=== PATIENT | female | born 1980 | race Caucasian/White ===

== ENCOUNTER 2017-03-14 11:33 | Day surgery (SDC) | payer BC ==
[2017-03-14] MEDS ORDERED: Lactated Ringers 1,000 ML IV SCH (12:00)
[2017-03-14] MEDS ORDERED: Midazolam 1 MG/ML 2 ML SDV ONE (13:01)
[2017-03-14] MEDS ORDERED: fentaNYL 100 MCG/2 ML SDV ONE ×2 (13:01→14:32)
[2017-03-14] MEDS ORDERED: Propofol 200 MG/20 ML SDV ONE ×2 (13:01→14:30)
[2017-03-14] MEDS ORDERED: Lidocaine 1% 50 ML MDV ONE (13:36)
[2017-03-14] MEDS ORDERED: Silver Nitrate Applicator Each TOP ONE (14:30)
--- NOTE | 2017-03-14 15:06 | PCM.PRNOTE ---
- Free Text/Narrative Note: Description:On bimanual exam, the patient has approximately 6-8 week anteverted , mobile uterus with the cervix that is dilated to approximately 1 cm PREOPERATIVE DIAGNOSIS: Missed . POSTOPERATIVE DIAGNOSIS: Missed . PROCEDURE PERFORMED: Suction dilation and curettage and cervical block ANESTHESIA: sedation + cervical block ESTIMATED BLOOD LOSS: Less than 50 cc. SPECIMENS: Products of conception DRAINS: None. SURGEON : Dr. Arun Gonzalez PROCEDURE: The patient was taken to the operating room where a general anesthetic was administered. She was then positioned in the dorsal lithotomy position and prepped and draped in the normal sterile fashion. Once the anesthetic was found to be adequate, a bimanual exam was performed under anesthetic. Next, a speculum was placed in the vagina. The anterior lip of cervix was grasped with the vulsellum tenaculum and due to the patient already being dilated approximately 1 cm, no cervical dilation was needed. A size 7 curved suction curette was used and connected to the suction and was placed in the cervix and a suction curettage was performed. Two passes were made with the suction curettage. Next, a sharp curettage was performed obtaining a small amount of tissue and this was followed by third suction curettage and then a final sharp curettage was performed, which revealed a good uterine cry on all sides of the uterus. After the procedure, the vulsellum tenaculum was removed. The cervix was seemed to be hemostatic. The speculum was removed.
[2017-03-14] MEDS ORDERED: Acetaminophen/oxyCODONE 325-5 MG Tab PO ONE (15:33)
[2017-03-14 16:38] VITALS: BP 141/75
== END 2017-03-14 16:30 | disposition home or self-care (01) ==
LOC: JP.SDS 11:33
PROVIDERS: ATTEND Obstetrics & Gynecology
DX: O02.1 Missed abortion (principal); E66.01 Morbid (severe) obesity due to excess calories; Z87.891 Personal history of nicotine dependence
CPT/HCPCS: 36415; 59820; 86850; 86900; 86901; 88305; A9270; J2250; J2704; J3010; J7120

== ENCOUNTER 2019-08-04 13:18 | Emergency (ER) | payer BC ==
[2019-08-04] MEDS ORDERED: Sodium Chloride 0.9% 10 ML Syringe FLUSH PRN (13:35)
[2019-08-04] MEDS ORDERED: HYDROmorphone 1 MG/ML Syringe IVPUSH ONE (13:35)
[2019-08-04 13:40] VITALS: BP 141/81; PULSE 105
[2019-08-04] MEDS ORDERED: Ketorolac 30 MG/ML SDV IVPUSH ONE (13:44)
--- NOTE | 2019-08-04 13:45 | EDM.PDOC ---
ED HPI GENERAL MEDICAL PROBLEM - General Chief Complaint: Lower Extremity Injury/Pain Stated Complaint: FELL OFF HOURSE Time Seen by Provider: 08/04/19 13:30 Source of Information: Reports: Patient, Old Records, RN History Limitations: Reports: No Limitations - History of Present Illness INITIAL COMMENTS - FREE TEXT/NARRATIVE: 39 yo female fell off a horse about an hour before arrival via private vehicle. Only complains of L ankle pain. Onset: Today Onset Date: 08/04/19 Onset Time: 12:40 Duration: Hour(s): (1), Constant Location: Reports: Lower Extremity, Left Quality: Reports: Ache Severity: Moderate Improves with: Reports: Rest Worsens with: Reports: Movement Context: Reports: Trauma Associated Symptoms: Reports: No Other Symptoms Treatments PRODUCT MARKETER: Reports: Other (see below) (none) - Related Data Allergies Allergy/AdvReac Type Severity Reaction Status Date / Time No Known Allergies Allergy Verified 08/04/19 14:05 Home Meds: Home Meds Acetaminophen/HYDROcodone [[place] 325-5 MG] 1 - 2 tab PO Q6H PRN #20 tab [Rx] Multivit with Calcium,Iron,Min [One Daily Women's] 1 tab PO DAILY 08/04/19 [ History] Sertraline [Zoloft] 75 mg PO BEDTIME 08/04/19 [History] Simvastatin 10 mg PO DAILY 08/04/19 [History] metFORMIN HCl [Metformin HCl] 500 mg PO BID 08/04/19 [History] traZODone HCl [Trazodone HCl] 25 mg PO DAILY 08/04/19 [History] Past Medical History HEENT History: Reports: Impaired Vision Genitourinary History: Reports: Renal Calculus 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: , Spontaneous Endocrine/Metabolic History: Reports: Obesity/BMI 30+ - Infectious Disease History Infectious Disease History: Reports: Chicken Pox - Past Surgical History Head Surgeries/Procedures: Reports: None HEENT Surgical History: Reports: Other (See Below) Dermatological Surgical History: Reports: None Social & Family History - Family History Family Medical History: Noncontributory - Caffeine Use Caffeine Use: Reports: Soda Review of Systems - Review of Systems Review Of Systems: See Below Constitutional: Reports: No Symptoms Musculoskeletal: Reports: Joint Pain (L ankle), Joint Swelling (L ankle) Skin: Reports: No Symptoms Neurological: Reports: No Symptoms ED EXAM, GENERAL - Physical Exam Exam: See Below Exam Limited By: No Limitations General Appearance: Alert, WD/WN, No Apparent Distress Extremities: Pedal Edema (L ankle is swollen. ), Joint Swelling (L ankle), Leg Pain (L ankle), Limited Range of Motion (due to pain.). No: Normal Inspection, Normal Range of Motion, Non-Tender, No Pedal Edema, Increased Warmth, Redness Neurological: Alert, Oriented, CN II-XII Intact, Normal Cognition, No Motor/ Sensory Deficits Psychiatric: Normal Affect, Normal Mood Skin Exam: Warm, Dry, Intact, Normal Color, No Rash ED TRAUMA EXTREMITY PROCEDURES - Joint Reduction Left Ankle Sedation: Conscious Sedation (per anesthesia) Pre-Procedure NV Status: Normal Post-Procedure NV Status: Normal Technique: Traction/Counter Traction Number of Attempts: 1 Post-Reduction Imaging: Completely Reduced Joint Reduction Complications: No Course - Vital Signs Last Recorded V/S: Last Vital Signs Temp 37.1 C 08/04/19 13:43 Pulse 105 H 08/04/19 13:43 Resp 18 08/04/19 13:43 BP 141/81 H 08/04/19 13:43 Pulse Ox 98 08/04/19 13:43 - Orders/Labs/Meds Orders: Active Orders 24 hr Category Date Time Status Ankle 2V Rt [CR] Stat Exams 08/04/19 15:15 Ordered Ankle Min 3V Lt [CR] Stat Exams 08/04/19 13:41 Taken Sodium Chloride 0.9% [Normal Saline] 1,000 ml Med 08/04/19 14:15 Active IV ASDIRECTED Sodium Chloride 0.9% [Saline Flush] Med 08/04/19 13:35 Active 10 ml FLUSH ASDIRECTED PRN Saline Lock Insert [OM.PC] Routine Oth 08/04/19 13:35 Ordered Medication Orders Sodium Chloride (Normal Saline) 1,000 mls @ 50 mls/hr IV ASDIRECTED MICHAELA Last Admin: 08/04/19 14:09 Dose: 50 mls/hr Sodium Chloride (Saline Flush) 10 ml FLUSH ASDIRECTED PRN PRN Reason: Keep Vein Open Last Admin: 08/04/19 13:38 Dose: 10 ml Meds: Medications Generic Name Dose Route Start Last Admin Trade Name Freq PRN Reason Stop Dose Admin Sodium Chloride 1,000 mls @ 50 mls/hr 08/04/19 14:15 08/04/19 14:09 Normal Saline IV 50 mls/hr ASDIRECTED MICHAELA Administration Sodium Chloride 10 ml 08/04/19 13:35 08/04/19 13:38 Saline Flush FLUSH 10 ml ASDIRECTED PRN Administration Keep Vein Open Discontinued Medications Generic Name Dose Route Start Last Admin Trade Name Galina PRN Reason Stop Dose Admin Hydromorphone HCl 1 mg 08/04/19 13:35 08/04/19 13:38 Dilaudid IVPUSH 08/04/19 13:36 1 mg ONETIME ONE Administration Ketorolac Tromethamine 30 mg 08/04/19 13:44 08/04/19 13:47 Toradol IVPUSH 08/04/19 13:45 30 mg ONETIME ONE Administration - Radiology Interpretation Free Text/Narrative:: L ankle [id number] ankle fx with partial dislocation. Post-reduction films-improved alignment, reduced. Departure - Departure Time of Disposition: 15:45 Disposition: Home, Self-Care 01 Condition: Fair Clinical Impression: Trimalleolar fracture of ankle, closed Qualifiers: Encounter type: initial encounter Laterality: left Qualified Code(s): S82.852A - Displaced trimalleolar fracture of left lower leg, initial encounter for closed fracture - Discharge Information *PRESCRIPTION DRUG MONITORING PROGRAM REVIEWED*: No *COPY OF PRESCRIPTION DRUG MONITORING REPORT IN PATIENT ALIA: No Prescriptions: Acetaminophen/HYDROcodone [[place] 325-5 MG] 1 - 2 tab PO Q6H PRN #20 tab PRN Reason: Pain Referrals: PCP,None [Primary Care Provider] - Forms: ED Department Discharge Additional Instructions: Take ibuprofen 400-600 mg every 6 hrs with food. Elevate your injury to reduce swelling and pain. Add [place] for added relief. Follow up with Dr. Jorge later this week, someone will be calling you with and appt. Crutch walking and no weight bearing. Sepsis Event Note - Focused Exam Vital Signs: Vital Signs Temp Pulse Resp BP Pulse Ox 08/04/19 13:43 37.1 C 105 H 18 141/81 H 98 08/04/19 13:38 37.1 C 105 H 18 141/81 H 98 Date Exam was Performed: 08/04/19 Time Exam was Performed: 15:25 - My Orders Last 24 Hours: My Active Orders 08/04/19 13:35 Sodium Chloride 0.9% [Saline Flush] 10 ml FLUSH ASDIRECTED PRN Saline Lock Insert [OM.PC] Routine 08/04/19 13:41 Ankle Min 3V Lt [CR] Stat 08/04/19 14:15 Sodium Chloride 0.9% [Normal Saline] 1,000 ml IV ASDIRECTED 08/04/19 15:15 Ankle 2V Rt [CR] Stat - Assessment/Plan Last 24 Hours: My Active Orders 08/04/19 13:35 Sodium Chloride 0.9% [Saline Flush] 10 ml FLUSH ASDIRECTED PRN Saline Lock Insert [OM.PC] Routine 08/04/19 13:41 Ankle Min 3V Lt [CR] Stat 08/04/19 14:15 Sodium Chloride 0.9% [Normal Saline] 1,000 ml IV ASDIRECTED 08/04/19 15:15 Ankle 2V Rt [CR] Stat
[2019-08-04] MEDS ORDERED: Sodium Chloride 0.9% 1,000 ML IV SCH (14:15)
[2019-08-04] MEDS ORDERED: Propofol 200 MG/20 ML SDV ONE (15:25)
--- NOTE | 2019-08-05 09:34 | CR ---
Ankle Min 3V Lt, Ankle 2V Rt CLINICAL HISTORY: Fall FINDINGS: The soft tissues are swollen. There is a fracture of the medial malleolus with displacement. There is also a comminuted fracture of the fibula. The the posterior plafond appears intact. There is lateral subluxation of the talus. Small ossific density off the talus may represent a chip fracture. Impression: Fracture dislocation described above Ankle Min 2V Lt, CLINICAL HISTORY: Fracture, postreduction FINDINGS: There has been reduction of the fracture dislocation of the tibia and fibula. The no definite posterior plafond fracture is identified. There is a small fracture of the inferior lateral talus. IMPRESSION: Reduction of tib-fib fracture dislocation
== END 2019-08-04 15:48 | disposition home or self-care (01) ==
LOC: JP.ED 13:18
DX: S82.852A Displaced trimalleolar fracture of left lower leg, initial encounter for closed fracture (principal); E66.9 Obesity, unspecified; Z68.33 Body mass index [BMI] 33.0-33.9, adult; Z79.899 Other long term (current) drug therapy; V80.010A Animal-rider injured by fall from or being thrown from horse in noncollision accident, initial encounter
CPT/HCPCS: 27818; 73600; 73610; 96374; 96375; 99152; 99283; J1170; J1885; J2704; J7030

== ENCOUNTER 2019-08-12 08:22 | Day surgery (SDC) | payer BC ==
[~2019-08-12 08:22] MED LIST: Bupivacaine 0.5% 30 ML SDV ONE; Dexamethasone 4 MG/ML SDV ONE; Glycopyrrolate 0.2 MG/ML 5 ML MDV ONE; Neostigmine Methylsulfate 1 MG/ML 5 ML Syringe ONE; Ondansetron 4 MG/2 ML SDV ONE; Propofol 200 MG/20 ML SDV ONE; Rocuronium 50 MG/5 ML Vial ONE; Succinylcholine 200 MG/10 ML MDV ONE; fentaNYL 250 MCG/5 ML SDV ONE
[2019-08-12] MEDS ORDERED: Lactated Ringers 1,000 ML IV SCH (09:00)
[2019-08-12] MEDS ORDERED: Nozin Nasal Sanitizer NASBOTH ONE (09:07)
[2019-08-12] MEDS ORDERED: ceFAZolin 1 GM in Premix Bag 1 BAG IV ONE (09:30)
[2019-08-12] MEDS ORDERED: fentaNYL 100 MCG/2 ML SDV ONE (11:37)
[2019-08-12] MEDS ORDERED: fentaNYL 100 MCG/2 ML SDV IVPUSH ONE ×2 (12:23→12:38)
[2019-08-12] MEDS ORDERED: hydrOXYzine HCL 100 MG/2 ML SDV IM ONE (12:23)
[2019-08-12] MEDS ORDERED: Acetaminophen/oxyCODONE 325-5 MG Tab PO PRN (13:17)
[2019-08-12 14:31] VITALS: BP 136/96; PULSE 95
--- NOTE | 2019-08-14 22:19 | OR ---
DATE OF PROCEDURE: 08/12/2019 SURGEON: Dread Jorge MD PREOPERATIVE DIAGNOSIS: Fracture dislocation, left ankle, with bimalleolar fracture and rupture of distal syndesmosis. POSTOPERATIVE DIAGNOSIS: Fracture dislocation, left ankle, with bimalleolar fracture and rupture of distal syndesmosis. PROCEDURE: Open reduction and internal fixation of left ankle including distal fibula and medial malleolus with placement of TightRope syndesmosis repair. ANESTHESIA: General. INDICATIONS: Lora is a 39-year-old female who sustained a fracture dislocation of her left ankle on falling from her horse. She underwent reduction in the emergency room. She has been in a splint with minimal weightbearing and working on icing and elevation to reduce the swelling. She is now taken to the operating room for fixation. Risks, benefits, and potential complications were discussed. DESCRIPTION OF PROCEDURE: After adequate anesthesia was obtained, the patient was placed supine with a tourniquet about the left upper thigh. Left leg was prepped and draped in a sterile fashion. Leg was exsanguinated. Tourniquet was inflated to 300 mmHg pressure. A longitudinal incision made over the lateral aspect of the ankle, carried down through the subcutaneous tissues to the border of the fibula. The fibular fracture was exposed. Some small fragments were impacted, and the fracture was manipulated into place with use of a periosteal elevator. A Synthes precontoured fibular plate was selected. This was then secured to the lateral fibula using locking screws distally and cortical screws proximally in compression. Final position was confirmed with fluoroscopy. Incision was then made over the medial malleolus, carried down through the subcutaneous tissues, and the medial malleolar fragment was identified, which was displaced. This was reduced and held in position with a bone clamp and 2 partially threaded cancellous screws were placed in parallel. Final position was confirmed using image intensifier. Persistent disruption of the syndesmosis was noted. Drill was placed through a screw hole in the fibular plate across the fibula, syndesmosis, and out the medial incision in the tibia. This was then used to pass the long needle for the [employer]rex TightRope. Button was brought out medially and secured against the cortex. Sutures were cut from the medial button. Ankle was then held in neutral position and the lateral button was then cinched down. Final position was confirmed using image intensifier. Sutures were tied and cut. Wounds were then irrigated. Skin was closed using 0 Vicryl in the deep layer, 2-0 Vicryl in the dermis, and a running 3-0 Monocryl subcuticular. Steri -Strips were applied. Wounds were infiltrated with Marcaine. Sterile dressing was placed, and then a well-padded AO splint was applied with the foot in neutral position. The patient tolerated procedure very well. There were no complications. Taken from the operating room in stable condition. Dread Jorge MD /[id number]
== END 2019-08-12 14:35 | disposition home or self-care (01) ==
LOC: JP.SDS 08:22
PROVIDERS: ATTEND Specialist
DX: S82.842A Displaced bimalleolar fracture of left lower leg, initial encounter for closed fracture (principal); S93.432A Sprain of tibiofibular ligament of left ankle, initial encounter; E66.9 Obesity, unspecified; Z68.34 Body mass index [BMI] 34.0-34.9, adult; Z87.891 Personal history of nicotine dependence; W23.0XXA Caught, crushed, jammed, or pinched between moving objects, initial encounter; Y93.52 Activity, horseback riding
CPT/HCPCS: 27814; 36415; 76000; 80053; 85025; A9270; C1713; C1776; J0330; J0690; J1100; J2405; J2704; J2710; J3010; J3410; J3490; J7120

== ENCOUNTER 2020-06-08 08:36 | Day surgery (SDC) | payer BC ==
[~2020-06-08 08:36] MED LIST changes: -Dexamethasone 4 MG/ML SDV ONE; -Glycopyrrolate 0.2 MG/ML 5 ML MDV ONE; +Lactated Ringers 1,000 ML IV SCH; -Neostigmine Methylsulfate 1 MG/ML 5 ML Syringe ONE; +Nozin Nasal Sanitizer NASBOTH ONE; -Ondansetron 4 MG/2 ML SDV ONE; -Propofol 200 MG/20 ML SDV ONE; -Rocuronium 50 MG/5 ML Vial ONE; -Succinylcholine 200 MG/10 ML MDV ONE; +ceFAZolin 2 GM in Premix Bag 1 BAG IV ONE; -fentaNYL 250 MCG/5 ML SDV ONE
[2020-06-08] MEDS ORDERED: Glycopyrrolate 0.2 MG/ML 5 ML MDV ONE (08:56)
[2020-06-08] MEDS ORDERED: Propofol 200 MG/20 ML SDV ONE (08:56)
[2020-06-08] MEDS ORDERED: Ondansetron 4 MG/2 ML SDV ONE (08:56)
[2020-06-08] MEDS ORDERED: Dexamethasone 4 MG/ML SDV ONE (08:56)
[2020-06-08] MEDS ORDERED: Succinylcholine 200 MG/10 ML MDV ONE (08:56)
[2020-06-08] MEDS ORDERED: Rocuronium 50 MG/5 ML Vial ONE (08:56)
[2020-06-08] MEDS ORDERED: fentaNYL 250 MCG/5 ML SDV ONE (08:56)
[2020-06-08] MEDS ORDERED: Neostigmine Methylsulfate 1 MG/ML 5 ML Syringe ONE (08:56)
[2020-06-08] MEDS ORDERED: Bupivacaine 0.5% 50 ML MDV ONE (10:18)
[2020-06-08] MEDS ORDERED: Ketorolac 60 MG/2 ML SDV ONE (10:55)
[2020-06-08] MEDS ORDERED: fentaNYL 100 MCG/2 ML SDV ONE (10:56)
[2020-06-08] MEDS ORDERED: Acetaminophen/HYDROcodone 325-5 MG Tab PO PRN (12:00)
[2020-06-08 12:23] VITALS: BP 119/68; PULSE 84
--- NOTE | 2020-06-17 22:57 | OR ---
DATE OF PROCEDURE: 06/08/2020 SURGEON: Dread Jorge MD PREOPERATIVE DIAGNOSIS: Anterior impingement, left ankle. POSTOPERATIVE DIAGNOSES: 1. Anterior impingement, left ankle. 2. Synovitis, left ankle. 3. Small calcified body. PROCEDURES: Arthroscopy, left ankle, with limited synovectomy and excision of calcified body. ANESTHESIA: General. INDICATIONS: Shabnam is a 39-year-old female who sustained a fracture dislocation of her left ankle. She has gone on to heal the fracture, but is having persistent pain and swelling in the anterior aspect of the joint. She has failed conservative treatment including injection. Examination and imaging are consistent with soft tissue impingement of the anterior aspect of the ankle and a possible loose body. She now presents for arthroscopic evaluation and debridement. Risks, benefits and potential complications of the procedure were discussed. DESCRIPTION OF PROCEDURE: After adequate anesthesia was obtained, the patient was supine with the tourniquet about the left upper thigh, left leg was prepped and draped in sterile fashion. Leg was exsanguinated and tourniquet inflated to 300 mmHg pressure. The ankle was placed in a traction stirrup and slight traction placed across the joint. Ankle joint was infiltrated with approximately 12 mL of saline distending the joint. A small stab incision was made anterolaterally, soft tissues were spread with a Maira Esther and a blunt trocar was then introduced. A camera was placed with the trocar placed through the cannula and the joint was inspected. This revealed a moderate amount of disrupted capsule and impingement anteromedially. Anteromedial portal was established under direct visualization. Shaver was introduced and impinging soft tissue was debrided. During debridement of this, a calcified body was present, embedded within the soft tissue and this was excised with the shaver. Medial talar dome showed no evidence of articular cartilage damage. No loose bodies were present within the medial gutter. The scope was then switched from the lateral to the medial portal, and looking across the anterior aspect of the joint, no significant exostosis was present in the tibia. The talar dome was intact with some very minor scuffing. Disruption of the anterolateral joint capsule was noted, some soft tissue, but not as significant as anterior and medially. Shaver was introduced and this was debrided. Visualization of the lateral gutter showed no evidence of loose body. The lateral talar dome was intact. Ankle was taken range of motion into dorsiflexion and no evidence of bony impingement or other soft tissues were noted. Scope was withdrawn, ankle was drained and port sites were closed in a standard fashion. The port sites and ankle were then infiltrated with Marcaine and a sterile dressing was applied. The patient tolerated the procedure very well. There were no complications. She was taken from the operating room in stable condition. Dread Jorge MD /[id number]
== END 2020-06-08 12:35 | disposition home or self-care (01) ==
LOC: JP.SDS 08:36
PROVIDERS: ATTEND Specialist
DX: M25.872 Other specified joint disorders, left ankle and foot (principal); M65.872 Other synovitis and tenosynovitis, left ankle and foot; E78.00 Pure hypercholesterolemia, unspecified; E66.01 Morbid (severe) obesity due to excess calories; Z68.36 Body mass index [BMI] 36.0-36.9, adult
CPT/HCPCS: 29898; 36415; 80053; 85027; A9270; J0330; J0690; J1100; J1885; J2405; J2704; J3010; J3490; J7120; J2710

== ENCOUNTER 2023-09-15 06:28 | Day surgery (SDC) | payer BC ==
[2023-09-15] MEDS ORDERED: fentaNYL 50 MCG/ML SDV ONE ×2 (06:44→07:04)
[2023-09-15] MEDS ORDERED: Midazolam 1 MG/ML 2 ML SDV ONE ×2 (06:44→07:03)
[2023-09-15] MEDS ORDERED: Propofol 200 MG/20 ML SDV ONE ×3 (06:44→07:49)
[2023-09-15] MEDS: Sodium Chloride 0.9% 1,000 ML IV SCH (07:13)
[2023-09-15 09:54] VITALS: PULSE 82
[2023-09-15 09:55] VITALS: BP 122/48
== END 2023-09-15 09:50 | disposition home or self-care (01) ==
LOC: JP.SDS 06:28
PROVIDERS: ATTEND Surgery
DX: Z12.11 Encounter for screening for malignant neoplasm of colon (principal); K63.5 Polyp of colon; K62.1 Rectal polyp; I10 Essential (primary) hypertension; F32.A Depression, unspecified; E66.9 Obesity, unspecified; F17.200 Nicotine dependence, unspecified, uncomplicated
CPT/HCPCS: 00811-QZ; 88305; J2250; J2704; J3010; J7030